=== PATIENT | male | born 1955 | race Caucasian/White ===

== ENCOUNTER → 2024-03-27 00:39 | Outpatient (CLI) | payer MEDICARE, BC, SELFPAY ==
--- NOTE | 2024-03-27 10:31 | DI.RAD_ITS ---
Exam(s) RF CATHETER PATENCY CHECK W EXAM: RF CATHETER PATENCY CHECK W CLINICAL HISTORY: PRESENCE OF PORT,Z95.828,METASTATIC PROSTATE CA,PORT NOT FUNCTIONING TECHNIQUE: 2D and realtime digital imaging was performed. CONTRAST MATERIAL: Refer to procedure report. COMPARISON: No exams were available for comparison FINDINGS: Fluoroscopy was provided during the performance of a port evaluation. There is reflux of contrast in to left brachiocephalic vein, the left internal jugular vein and smaller central veins. The findings are suspicious for thrombus in the region of the brachiocephalic vein. There does appear to be some contrast in the superior vena cava suggesting subtotal occlusion. The smaller veins may be collater als which have developed. Ka,r=9.5 mGy IMPRESSION: RADIATION DOSE DELIVERED: 0.0 1871.8 0
[2024-03-27] MEDS: Omnipaque 350 MG/ML 50 ML BTL IJ (10:33)
== END ==
PROVIDERS: PCP Family Medicine; Visit Provider Family Medicine
DX: Z95.828 Presence of other vascular implants and grafts (principal)
CPT/HCPCS: 76000; 96523; Q9967

== ENCOUNTER 2024-03-27 10:05 | Outpatient (RCR) | payer MEDICARE, BC, SELFPAY ==
[2024-03-27] MEDS: Normal Saline Flush 10 ML SYR IVP (11:14)
== END 2024-04-05 23:59 | disposition home or self-care (01) ==
LOC: INF 10:05
PROVIDERS: PCP Family Medicine; Visit Provider Family Medicine
DX: Z45.2 Encounter for adjustment and management of vascular access device (principal)
CPT/HCPCS: 96523